=== PATIENT | male | born 1965 | race Caucasian/White ===

== ENCOUNTER → 2023-12-30 07:26 | Outpatient (REF) | payer OTHER, SELFPAY | LOC: MRI 07:26 | PROVIDERS: ATTENDING PHYSICIAN Family Medicine | DX: M51.36 Other intervertebral disc degeneration, lumbar region (principal) | CPT/HCPCS: 72148 ==

== ENCOUNTER → 2024-04-28 07:14 | Outpatient (REF) | payer OTHER, SELFPAY | LOC: RCS 07:14 | PROVIDERS: ATTENDING PHYSICIAN Internal Medicine Cardiovascular Disease; FAMILY PHYSICIAN Family Medicine | DX: R07.89 Other chest pain (principal); E78.2 Mixed hyperlipidemia; I70.8 Atherosclerosis of other arteries; I77.810 Thoracic aortic ectasia | CPT/HCPCS: 93306 ==

== ENCOUNTER → 2025-04-05 07:39 | Outpatient (REF) | payer OTHER, SELFPAY | LOC: HWRAD 07:39 | PROVIDERS: ATTENDING PHYSICIAN Internal Medicine Cardiovascular Disease; FAMILY PHYSICIAN Family Medicine | DX: I77.89 Other specified disorders of arteries and arterioles (principal); R07.89 Other chest pain | CPT/HCPCS: 71250 ==

== ENCOUNTER 2025-07-15 16:04 | Emergency (ER) | payer OTHER, SELFPAY ==
[2025-07-15 16:07] VITALS: BP 157/94
[2025-07-15 16:36] LABS: Hematocrit 42.2 % (39.0-52.0); Hemoglobin 14.0 g/dL (13.0-18.0); Mean Corp Hgb Conc. 33.2 g/dL (33.0-37.0); Mean Corpuscular Volume 87.0 fL (80.0-94.0); Nucleated Red Blood Cells % 0 % (-); Platelet Count 203 10^3/uL (130-400); Red Cell Dist. Width 13.2 % (11.5-14.5)
[2025-07-15 17:01] LABS: ALT (SGPT) 21 U/L (0-50); AST (SGOT) 18 U/L (17-59); Albumin 4.3 g/dl (3.5-5.0); Alkaline Phosphatase 54 U/L (38-126); Blood Urea Nitrogen 21 mg/dl (9-20); Calcium 9.0 mg/dl (8.4-10.2); Carbon Dioxide 24 mmol/L (22-30); Chloride 106 mmol/L (98-107); Glucose 124 mg/dl (70-99); Potassium 4.3 mmol/L (3.5-5.1); Sodium 137 mmol/L (135-145); Total Protein 6.7 g/dl (6.3-8.2); eGFR > 60.00
[2025-07-15 17:08] LABS: Troponin I < 0.012 ng/ml
[2025-07-15 18:45] VITALS: BP 140/81
--- NOTE | 2025-07-15 21:06 | ED.GENMED ---
History of Present Illness
General
Chief Complaint: Chest Pain
Time Seen by Provider: 07/15/25 20:55
History of Present Illness
History of Present Illness:
60-year-old male presents the emergency department for evaluation of right-sided chest pain that began abruptly around 12 noon today. Pain is pleuritic in nature and seems to be worse when lying flat. Denies any cough or fevers but did begin
having chills while sitting in the ED. Notes that he is currently on a steroid taper for nasal polyps. No nausea vomiting or diarrhea. Does have a history of underlying primary ciliary dyskinesia but this is well-managed with Breztri
Past History
Past History
ED Past Medical History: Other ('restrictive lung disease', Anxiety); Negative HTN, Hypercholesterolemia or NIDDM
ED Past Surgical History: None
Social History
Tobacco: Non-smoker
Alcohol: Occasional
Personal:
Living: with family
Review of Systems
Review of Systems
Allergies reviewed?: Yes
All Other Systems: ROS reviewed and negative except as documented in HPI and ROS
Phy Exam
Physical Exam
Physical Exam:
GEN: Well appearing, NAD, WDWN
HEENT: Oral mucosa moist, no scleral icterus
Cardiac: Regular rate and rhythm, no murmurs
Lung: No respiratory distress, no tachypnea, lungs clear to auscultation with diminished bases bilaterally
MSK: No gross deformity or injuries
Skin: Good color, no pallor or jaundice, no rashes
Neuro: AO x3, moves all extremities freely
Psych: Calm, cooperative
Scores
Heart Score for Chest Pain Patients
STEMI patient?: No
History: Slightly or Non-Suspicious
ECG: Normal
Age: >45 - <65 years
Risk Factors: 1 or 2 Risk Factors
Troponin: </= Normal Limit
Heart Score for Chest Pain Patients: 2
Heart Score Risk: 2.5% MACE over next 6 weeks
Course
Orders/Labs/Results
Orders:
Orders
07/15/25 16:06
Electrocardiogram (*1) Urgent
Reason for Study: Chest Pain
Electrocardiogram (*1) Urgent
Reason for Study: Chest Pain
EKG- Treatment ONCE
EKG- Treatment ONCE
07/15/25 16:26
Complete Blood Count/With Diff Urgent
Comprehensive Metabolic Panel Urgent
Troponin I Urgent
07/15/25 21:05
Electrocardiogram (*1) Urgent
Reason for Study: Chest Pain
EKG- Treatment ONCE
CR Chest - 2 Views Urgent
Comment:
Reason For Exam: chest pain
07/15/25 21:45
D-Dimer Urgent
Troponin I Urgent
07/15/25 22:32
CefTRIAXone [Rocephin] 1,000 mg IV NOW STA
Lidocaine [Lidocaine 4% Patch] 1 patch TOPICAL NOW STA
Apply Lidocaine patch(s) to:: R chest
Abnormal Lab Results
07/15/25
16:26
WBC 18.9 H 10^3/uL
(4.8-10.8)
Abs Immat Gran (auto) 0.2 H 10^3/uL
(0-0.05)
Absolute Neuts (auto) 14.8 H 10^3/uL
(1.4-6.5)
Absolute Monos (auto) 2.1 H 10^3/uL
(0.1-0.6)
Immature Gran % 1.0 H %
(0-0.5)
Neutrophils % 78.2 H %
(42.2-75.2)
Lymphocytes % 9.7 L %
(20.5-51.1)
Monocytes % 10.9 H %
(1.7-9.3)
BUN 21 H mg/dl
(9-20)
Glucose 124 H mg/dl
(70-99)
07/15/25 16:26
07/15/25 16:26
Vital Signs
Initial and Last Documented VS:
Initial Vital Signs
Temp Pulse Resp BP Pulse Ox
99 F 96 18 157/94 98
07/15/25 16:07 07/15/25 16:07 07/15/25 16:07 07/15/25 16:07 07/15/25 16:07
Last Documented Vital Signs
Temp Pulse Resp BP Pulse Ox
99 F 82 22 157/88 95
07/15/25 16:07 07/15/25 22:00 07/15/25 22:00 07/15/25 21:22 07/15/25 21:22
MDM/Problems Addressed
MDM/Problems Addressed:
Cardiac workup is reassuring and D-dimer is negative. Patient is noted to have a right lower lobe pneumonia which fits with his localized complaint. He will be started on oral antibiotics, suitable for outpatient management given that he has
normal vitals and no hypoxia
Comment
Comment:
Initial EKG independently interpreted by me shows normal sinus rhythm however limb lead reversal affects interpretation, no obvious ST changes
Repeat EKG independently interpreted by me shows normal sinus rhythm with no ST changes concerning for ischemia
Chest x-ray independently interpreted by me shows a right lower lobe pneumonia
*Pulse Oximetry
SaO2: 97
Oxygen Mode of Delivery: Room air
Patient hypoxic: no
*Critical Care Note
Total Time (30-74mins, 75-104mins- exclusive of procedures): Not Applicable
ED Attending Note
-
Portions of this chart may have been created with voice recognition software.� Occasional wrong word or��sound alike� substitutions may have occurred due to the inherent limitations of voice recognition software.
Discharge Plan
Departure
Patient Disposition: Home (Routine Discharge)
Date of Disposition: 07/15/25
Time of Disposition: 22:33
Patient with high blood pressure during this ER visit?: No
Discharge Problem:
Community acquired pneumonia
Instructions: Pneumonia in adults (DC)
Prescriptions:
New
cefdinir 300 mg capsule
300 mg PO Q12H 4 Days Qty: 8 0RF
azithromycin [Zithromax] 250 mg tablet
250 mg PO DAILY Qty: 6 0RF
Rx Instructions:
500mg PO qd x 1 then 250mg PO qd x 4d
No Action
levothyroxine 125 MCG tablet
125 mcg PO DAILY
Patient Comments:
pt does not take on Saturday
Referrals:
Matthew Wilson DO [Family Provider, Family Practice]
Interventions
Interventions:
*Risk Screen - Suicide Last Done: 07/15/25 16:07
*General Assessment Last Done: 07/15/25 16:07
*Neglect/Abuse Screening Last Done: 07/15/25 16:07
*ED- Fall Risk Assessment Last Done: 07/15/25 21:19
*ED COVID-19 Vaccine History Last Done: 07/15/25 21:19
*Nursing Disposition Last Done: 07/15/25 23:11
ED- Cardiac Assessment Last Done: 07/15/25 21:19
Discharge Date and Time
Discharge Date/Time: 07/15/25 23:15
Print Language: CYPRIOT
[2025-07-15 21:19] VITALS: BMI 29.3
[2025-07-15 21:22] VITALS: BP 157/88
[2025-07-15 22:15] LABS: D-Dimer < 0.27 ug/mlFEU (0.00-0.50)
[2025-07-15 22:21] LABS: Troponin I < 0.012 ng/ml
[2025-07-15] MEDS: LIDOCAINE 4% PATCH 1 PATCH TOPICAL (23:01)
[2025-07-15] MEDS: ROCEPHIN 1000 MG IV (23:01)
== END 2025-07-15 23:15 | disposition home or self-care (01) ==
LOC: EMR 16:04
PROVIDERS: Physician Assistant; EMERGENCY PHYSICIAN Emergency Medicine; FAMILY PHYSICIAN Family Medicine
DX: J18.9 Pneumonia, unspecified organism (principal); Q34.8 Other specified congenital malformations of respiratory system; F41.9 Anxiety disorder, unspecified
CPT/HCPCS: 99284; 96374; 71046; 80053; 84484; 85025; 85379; 93005

== ENCOUNTER → 2025-07-28 07:47 | Outpatient (REF) | payer OTHER, SELFPAY | LOC: HWRAD 07:47 | PROVIDERS: ATTENDING PHYSICIAN Otolaryngology Facial Plastic Surgery; FAMILY PHYSICIAN Family Medicine; REFERRING PHYSICIAN Internal Medicine Critical Care Medicine | DX: J33.0 Polyp of nasal cavity (principal) | CPT/HCPCS: 70486 ==

== ENCOUNTER → 2025-08-26 14:34 | Outpatient (REF) | payer OTHER, SELFPAY | LOC: RAD 14:34 | PROVIDERS: ATTENDING PHYSICIAN Family Medicine; OTHER PHYSICIAN Otolaryngology Facial Plastic Surgery; REFERRING PHYSICIAN Internal Medicine Critical Care Medicine | DX: J18.9 Pneumonia, unspecified organism (principal) | CPT/HCPCS: 71046 ==